=== PATIENT | female | born 1965 | race Caucasian/White ===

== ENCOUNTER → 2018-02-04 08:20 | Outpatient (CLI) | payer OTHER, SELFPAY ==
--- NOTE | 2018-02-04 08:30 | RAD_ITS ---
STUDY: X-RAY - ESOPHAGUS (BARIUM SWALLOW) WITH FLUOROSCOPY REASON FOR EXAM: Female, 52 years old. Dysphagia for solids. TECHNIQUE: 17 view(s) of the esophagus were obtained following swallowing of barium. FLUOROSCOPY TIME (if supplied): (0:29) minutes/seconds COMPARISON: None. FINDINGS: There is no demonstrated esophageal foreign body. There is no demonstrated stricture or mucosal abnormality. Mild degree of circumferential narrowing at the gastroesophageal junction. The patient ingested a 12 mm tablet barium without any difficulty. Normal visualized aortic arch and descending thoracic aorta. Normal visualized pulmonary parenchyma. Normal visualized osseous structures of the thorax. RAD/Esophagus Only IMPRESSION: Mild degree of circumferential narrowing at the gastroesophageal junction without trapping of the 12 mm tablet of barium. Endoscopy is recommended for further evaluation. Electronically Signed: Matt Garcia MD at 15:56 EDT Tel [phone], Service support ,
== END ==
PROVIDERS: Family Provider Family Medicine; PCP Family Medicine; Referring Provider Family Medicine; Visit Provider Family Medicine
DX: R13.10 Dysphagia, unspecified (principal)
CPT/HCPCS: 74220

== ENCOUNTER → 2018-03-28 16:15 | Outpatient (CLI) | payer OTHER, SELFPAY ==
--- NOTE | 2018-03-28 | EGD_PTH ---
PATIENT: STEPHEN ASIF LOC: [facility] U#:[id number] AGE/SX: 59/F ROOM: RE03/28/[address]: Dr. Gomez Gómez MD : 1965 BED: DIS: SPEC #: [id number] RECD: 03/28/18 16:19 STATUS: JAN TASHA #: [id number] PAOLA: 03/28/18 00:[address]: Gomez Gómez DEPT: SURGICAL PATHOLOGY RECD BY: Bennie Acharya ENTERED: 03/29/18 10:15 SP TYPE: EGD BIOPSY OT DR: Dr. Tanesha Larson MD [facility] Tissues: Esophageal mucous membrane Procedures: Surgery Specimen Level IV HEADER OPERATION: EGD with biopsy PRE-OP DIAGNOSIS: Dysphagia TISSUE SUBMITTED: Esophageal biopsies, rule out EE MICROSCOPIC DIAGNOSIS Esophageal biopsy: Fragments of squamous epithelium with mild congestion and minimal chronic inflammation. See comment. LA:xander 04/01/18 COMMENT Increased number of eosinophils, consistent with eosinophilic esophagitis are not seen. MICROSCOPIC DESCRIPTION Slides are reviewed. GROSS DESCRIPTION Received in fixative is one container labeled with the patient's name and designated esophageal biopsy. The specimen consists of multiple irregular fragments of light kulkarni soft tissue that in aggregate measure 1.5 x 0.5 x 0.1 cm. The specimen is totally submitted in one cassette. / SJ:rg 03/29/18 TC:3 CPT: 75702
--- OUTSIDE RECORDS SUMMARY | 2018-05-14 20:33 | XMS RPT_ITS ---
:1965 Author Organization [facility] Care Team Providers Name Role Phone Gomez Gómez Attending Unavailable Gomez Gómez Referring Unavailable Oscariff, Tanesha Primary Care Unavailable Jolliff, Tanesha Attending Unavailable Jolliff, Tanesha Referring Unavailable Jolliff, Tanesha Primary Care Unavailable PROBLEMS PROBLEMS No Problem Records FoundPROCEDURES PROCEDURES No Procedure Records FoundRESULTS RESULTS EGD ([facility] SITE) Observed: 03/28/2018 Status: F Source: [place] 12:00 AM [facility] REPOSITORY Patient: STEPHEN ASIF : 1965 (52/F) Acct Num: [id number] Phys: Gomez Gómez Unit Num: [id number] Loc: LABSPEC Specimen: [id number] Received: 03/28/181618 Spec Type: EGD BIOPSY TISSUES 1 TISSUES: Esophageal mucous membrane COMMENT Increased number of eosinophils, consistent with eosinophilic esophagitis are not seen. GROSS DESCRIPTION Received in fixative is one container labeled with the patient's name and designated esophageal biopsy. The specimen consists of multiple irregular fragments of light kulkarni soft tissue that in aggregate measure 1.5 x 0.5 x 0.1 cm. The specimen is totally submitted in one cassette. / LA:xander 03/29/18 TC:3 CPT: 58330 HEADER OPERATION: EGD with biopsy PRE-OP DIAGNOSIS: Dysphagia TISSUE SUBMITTED: Esophageal biopsies, rule out EE MICROSCOPIC DESCRIPTION Slides are reviewed. MICROSCOPIC DIAGNOSIS Esophageal biopsy: Fragments of squamous epithelium with mild congestion and minimal chronic inflammation. See comment. SJ:xander 04/01/18 Signed Wiley Vang 04/01/18 <signature on file> Performed By: #### PEGD #### [facility] [address] [place], [address] ESOPHAGUS ONLY Observed: 02/04/2018 Status: F Source: [place] 8:30 AM [facility] REPOSITORY [facility] Imaging Services [address] [place] [address] [place] [address] Esophagus Only MR#: [id number] Acct: [id number] Name: LAYASTEPHEN Amanuel Rep #: [id number] : 1965 F 52 From: Matt Garcia MD PCP: Tanesha Larson MD Status: REG CLI Study: Esophagus Only Date of Exam: 02/04/18 Exam# [id number] Ordering Dr: Tanesha Larson MD STUDY: X-RAY - ESOPHAGUS (BARIUM SWALLOW) WITH FLUOROSCOPY REASON FOR EXAM: Female, 52 years old. Dysphagia for solids. TECHNIQUE: 17 view(s) of the esophagus were obtained following swallowing of barium. FLUOROSCOPY TIME (if supplied): (0:29) minutes/seconds COMPARISON: None. FINDINGS: There is no demonstrated esophageal foreign body. There is no demonstrated stricture or mucosal abnormality. Mild degree of circumferential narrowing at the gastroesophageal junction. The patient ingested a 12 mm tablet barium without any difficulty. Normal visualized aortic arch and descending thoracic aorta. Normal visualized pulmonary parenchyma. Normal visualized osseous structures of the thorax. RAD/Esophagus Only IMPRESSION: Mild degree of circumferential narrowing at the gastroesophageal junction without trapping of the 12 mm tablet of barium. Endoscopy is recommended for further evaluation. Electronically Signed: Matt Garcia MD at 15:56 EDT Tel [phone], Service support , CC: Tanesha Larson MD Casino Worker: Signed ALLERGIES ALLERGIES No Allergies Records FoundENCOUNTERS ENCOUNTERS ADMIT/DISCHARGE ACCOUNT ADMITTING ENCOUNTER LOCATION SOURCE NUMBER CLASS 03/28/2018 [id number] Ambulatory [facility]iffany [place] 5 [facility] ing:LABSPEC Repository 02/04/2018 [id number] Ambulatory Tiffany [place] 4 [facility] ing:RAD Repository PAYERS PAYERS ENCOUNTER GUARANTOR PAYER SUBSCRIBER SOURCE 03/28/2018 STEPHANIE [id number] Primary STEPHEN A Tiffany [address] Insurance:MEDICAL JOHNSONDOB: [address] [id number] [address]Qmd: (330) Number: Repository [phone] () [id number] Date:[id number] [place] [id number]: 03/28/2018 Secondary NOT GIVENUNK Tiffany Insurance:SELF PAY [facility] Number: Effective Repository Date:2018-03-28 02/04/2018 [id number] Primary STEPHEN A [place] [address] Insurance:MEDICAL JOHNSONDOB: [place] [address]-01-24[facility] [address]Azi: (330) Number: Repository [phone] () [id number] Date:[id number] [address] [id number]: 02/04/2018 Secondary NOT GIVENUNK [place] Insurance:SELF PAY [facility] Number: Effective Repository Date:2018-01-25
== END ==
PROVIDERS: Family Provider Family Medicine; PCP Family Medicine; Referring Provider Internal Medicine Gastroenterology; Visit Provider Internal Medicine Gastroenterology
DX: R13.10 Dysphagia, unspecified (principal)
CPT/HCPCS: 88305

== ENCOUNTER → 2020-07-27 15:44 | Outpatient (CLI) | payer OTHER, SELFPAY ==
[2020-07-27 17:57] LABS: Absolute Lymphocyte Count 1.86 X10^3/uL (0.83-4.51); Absolute Neutrophil Count 3.8 X10^3/uL (2.0-7.7); Basophil# 0.04 X10^3/uL; Basophil% 0.6 % (0-1); Eosinophil# 0.17 X10^3/uL; Eosinophils% 2.7 % (0-5); Hematocrit 40.1 % (37-47); Hemoglobin 12.7 g/dL (12.0-15.0); Lymphocyte # 1.86 X10^3/ul (4.0); Lymphocyte % 29.6 % (19-41); Mean Corp Hgb Conc 31.7 g/dL (32-36); Mean Corpuscular Hgb 28.5 pg (27.0-32.0); Mean Corpuscular Volume 89.9 fL (81-99); Mean Platelet Vol. 9.7 fl (6.2-12.0); Monocyte# 0.42 X10^3/uL; Monocyte% 6.7 % (0-10); NRBC Flagged by Analyzer 0 % (0-5); Neutrophil # 3.77 X10^3/uL (2.7-7.7); Neutrophil % 60.1 % (47-70); Platelet Count 259 K/mm3 (150-450); RBC Distribution Width CV 12.5 % (11.6-14.6); RBC Distribution Width SD 40.6 fl (35.1-43.9); Red Blood Count 4.46 M/mm3 (4.2-5.4); White Blood Count 6.3 K/mm3 (4.4-11.0)
[2020-07-27 18:17] LABS: ALB/GLOB Ratio 1.3 RATIO (0.9-2.4); AST(SGOT) 35 U/L (15-37); Alanine Aminotransfer ALT/SGPT 52 U/L (13-56); Alkaline Phosphatase 95 U/L (45-117); Anion Gap 6 (5-15); BUN 11 mg/dL (7-18); BUN/Creat Ratio 12.7 RATIO (10-20); Calcium,Total 9.5 mg/dL (8.5-10.1); Chloride 104 mmol/L (98-107); Creatinine, Serum 0.86 mg/dL (0.55-1.02); EST Glomerular Filtration Rate 73 mL/min (>60); Est Glom Filt Rate - Afr Amer 88 mL/min (>60); Globulin 3.1 g/dL (2.2-4.2); Glucose 135 mg/dL (74-106); Potassium 3.9 mmol/L (3.5-5.1); Protein, Total 7.1 g/dL (6.4-8.2); Sodium Level 139 mmol/L (136-145); Thyroid Stim Hormone (TSH) 1.71 uIU/mL (0.358-3.74)
[2020-07-29 10:28] LABS: Cholesterol 212 mg/dL (200); High Density Lipoprotein 38 mg/dL; Triglycerides 227 mg/dL; Very Low Density Lipoprotein 45 mg/dL (5-40)
== END ==
PROVIDERS: PCP Family Medicine; Referring Provider Family Medicine; Visit Provider Family Medicine
DX: Z01.419 Encounter for gynecological examination (general) (routine) without abnormal findings (principal); F32.9 Major depressive disorder, single episode, unspecified
CPT/HCPCS: 36415; 80053; 80061; 82306; 84443; 85025

== ENCOUNTER → 2020-08-25 | Outpatient (CLI) | payer OTHER, SELFPAY ==
[2020-08-30 12:50] LABS: HPV Reflexed? NOT INDICATED
== END | disposition home or self-care (01) ==
PROVIDERS: PCP Family Medicine; Visit Provider Family Medicine
DX: Z01.419 Encounter for gynecological examination (general) (routine) without abnormal findings (principal)
CPT/HCPCS: 88175; G0145

== ENCOUNTER 2021-06-22 12:38 | Outpatient (CLI) | payer OTHER, SELFPAY ==
[2021-06-22 15:14] LABS: Absolute Lymphocyte Count 1.66 X10^3/uL (0.83-4.51); Absolute Neutrophil Count 3.3 X10^3/uL (2.0-7.7); Basophil# 0.05 X10^3/uL; Basophil% 0.9 % (0-1); Eosinophil# 0.16 X10^3/uL; Eosinophils% 2.9 % (0-5); Hematocrit 41.4 % (37-47); Hemoglobin 13.6 g/dL (12.0-15.0); Lymphocyte # 1.66 X10^3/ul (0.83-4.51); Lymphocyte % 29.9 % (19-41); Mean Corp Hgb Conc 32.9 g/dL (32-36); Mean Corpuscular Hgb 28.9 pg (27.0-32.0); Mean Corpuscular Volume 87.9 fL (81-99); Mean Platelet Vol. 9.3 fl (6.2-12.0); Monocyte# 0.33 X10^3/uL; Monocyte% 5.9 % (0-10); NRBC Flagged by Analyzer 0 % (0-5); Neutrophil # 3.33 X10^3/uL (2.7-7.7); Neutrophil % 59.9 % (47-70); Platelet Count 239 K/mm3 (150-450); RBC Distribution Width CV 12.6 % (11.6-14.6); Red Blood Count 4.71 M/mm3 (4.2-5.4); White Blood Count 5.6 K/mm3 (4.4-11.0)
[2021-06-22 15:36] LABS: ALB/GLOB Ratio 1.2 RATIO (0.9-2.4); AST(SGOT) 27 U/L (15-37); Alanine Aminotransfer ALT/SGPT 42 U/L (13-56); Albumin, Serum 3.8 g/dL (3.2-5.0); Alkaline Phosphatase 90 U/L (45-117); Anion Gap 5 (5-15); BUN 11 mg/dL (7-18); BUN/Creat Ratio 11.2 RATIO (10-20); Calcium,Total 9.2 mg/dL (8.5-10.1); Chloride 102 mmol/L (98-107); Creatinine, Serum 0.98 mg/dL (0.55-1.02); EST Glomerular Filtration Rate 62 mL/min (>60); Est Glom Filt Rate - Afr Amer 75 mL/min (>60); Globulin 3.3 g/dL (2.2-4.2); Glucose 177 mg/dL (74-106); Potassium 3.9 mmol/L (3.5-5.1); Protein, Total 7.1 g/dL (6.4-8.2); Sodium Level 138 mmol/L (136-145); Thyroid Stim Hormone (TSH) 1.42 uIU/mL (0.358-3.74)
== END 2021-06-22 23:59 | disposition home or self-care (01) ==
LOC: MTLAB 12:40
PROVIDERS: PCP Family Medicine; Referring Provider Family Medicine; Visit Provider Family Medicine
DX: R00.2 Palpitations (principal)
CPT/HCPCS: 36415; 80053; 84443; 85025

== ENCOUNTER → 2022-01-31 | Outpatient (CLI) | payer OTHER, SELFPAY ==
[2022-01-31 17:48] LABS: Absolute Neutrophil Count 3.8 X10^3/uL (2.0-7.7); Basophil# 0.05 X10^3/uL; Basophil% 0.8 % (0-1); Eosinophil# 0.24 X10^3/uL; Eosinophils% 3.6 % (0-5); Hematocrit 37.1 % (37-47); Hemoglobin 12.3 g/dL (12.0-15.0); Lymphocyte % 30.4 % (19-41); Mean Corp Hgb Conc 33.2 g/dL (32-36); Mean Corpuscular Hgb 29.4 pg (27.0-32.0); Mean Corpuscular Volume 88.5 fL (81-99); Mean Platelet Vol. 9.2 fl (6.2-12.0); Monocyte# 0.42 X10^3/uL; Monocyte% 6.4 % (0-10); NRBC Flagged by Analyzer 0 % (0-5); Neutrophil # 3.84 X10^3/uL (2.7-7.7); Neutrophil % 58.3 % (47-70); Platelet Count 251 K/mm3 (150-450); RBC Distribution Width CV 12.4 % (11.6-14.6); RBC Distribution Width SD 39.8 fl (35.1-43.9); Red Blood Count 4.19 M/mm3 (4.2-5.4); White Blood Count 6.6 K/mm3 (4.4-11.0)
[2022-01-31 18:23] LABS: ALB/GLOB Ratio 1.3 RATIO (0.9-2.4); AST(SGOT) 20 U/L (15-37); Alanine Aminotransfer ALT/SGPT 33 U/L (13-56); Albumin, Serum 3.8 g/dL (3.2-5.0); Alkaline Phosphatase 87 U/L (45-117); Anion Gap 6 (5-15); BUN 15 mg/dL (7-18); BUN/Creat Ratio 15.3 RATIO (10-20); Calcium,Total 9.7 mg/dL (8.5-10.1); Chloride 104 mmol/L (98-107); Creatinine, Serum 0.98 mg/dL (0.55-1.02); EST Glomerular Filtration Rate 62 mL/min (>60); Est Glom Filt Rate - Afr Amer 75 mL/min (>60); Glucose 135 mg/dL (74-106); Potassium 3.8 mmol/L (3.5-5.1); Protein, Total 6.8 g/dL (6.4-8.2); Sodium Level 138 mmol/L (136-145)
== END | disposition home or self-care (01) ==
LOC: MFPLAB 16:10
PROVIDERS: Family Medicine; PCP Family Medicine; Referring Provider Family Medicine; Visit Provider Family Medicine
DX: R10.9 Unspecified abdominal pain (principal); N39.0 Urinary tract infection, site not specified
CPT/HCPCS: 36415; 80053; 85025; 87086; 87088

== ENCOUNTER → 2022-08-23 | Outpatient (CLI) | payer OTHER, SELFPAY ==
--- NOTE | 2022-08-23 15:47 | CT_ITS ---
EXAM: CT ABDOMEN AND PELVIS WITH INTRAVENOUS CONTRAST CLINICAL INDICATION: Severe abd. pain post appendectomy STAT please TECHNIQUE: Helically acquired images were obtained of the abdomen and pelvis with intravenous contrast. This CT exam was performed using one or more of the following dose reduction techniques: automated exposure control, adjustment of the mA and/or kV according to patient size, and/or use of iterative reconstruction technique. CONTRAST: Oral and amp;amp; IV Gastrografin and amp;amp; 100mL Isovue-300 RADIATION DOSE: CTDIvol = 17.06 mGy, DLP = 1260.58 mGy-cm COMPARISON: 09/04/2012 FINDINGS: LOWER THORAX: Unremarkable. Lung bases are clear. No cardiomegaly. No significant pericardial effusion. ABDOMEN: LIVER: Fatty infiltration of the liver with no focal mass. GALLBLADDER AND BILE DUCTS: Unremarkable. No calcified gallstones. No gallbladder distention or wall edema. No intra- or extrahepatic biliary ductal dilation. PANCREAS: Unremarkable. No focal cystic or solid mass. SPLEEN: Unremarkable. Normal size without focal cystic or solid mass. ADRENALS: Unremarkable. No nodules. KIDNEYS AND URETERS: Unremarkable. Normal renal size and position. No hydronephrosis. STOMACH AND BOWEL: Unremarkable. No stomach or bowel distention. No focal inflammatory change. No extravasation of contrast from the GI tract to suggest leak. PELVIS: APPENDIX: No evidence of acute appendicitis. BLADDER: Unremarkable. REPRODUCTIVE: Unremarkable as visualized. No mass. ABDOMEN and PELVIS: INTRAPERITONEAL SPACE: No evidence for abdominal pelvic abscess. No intra-abdominal abscess. No evidence of inflammatory process in the right lower quadrant. No ascites or other fluid collection. No free air. BONES/JOINTS: Unremarkable. No suspicious lytic or blastic abnormality. SOFT TISSUES: Induration of the anterior abdominal wall especially the umbilicus seen consistent with the history of recent surgery. No discrete abdominal or pelvic wall hernia. No abscess of the abdominal wall. VASCULATURE: Unremarkable. Abdominal aorta is non-dilated. LYMPH NODES: Unremarkable. No enlarged lymph nodes. CT/Abdomen/Pelvis WITH Contrast IMPRESSION: 1. No definite acute or significant abnormality seen. 2. Postsurgical changes around the umbilicus without abscess. 3. No free fluid or intra-abdominal abscess. Electronically Signed: Fito Marc MD at 18:59 EDT ,
== END | disposition home or self-care (01) ==
PROVIDERS: PCP Family Medicine; Referring Provider Family Medicine; Visit Provider Family Medicine
DX: R10.84 Generalized abdominal pain (principal)
CPT/HCPCS: 74177; Q9967

== ENCOUNTER → 2023-01-24 | Outpatient (CLI) | payer OTHER, SELFPAY ==
[2023-01-24 17:57] LABS: Hematocrit 39.4 % (37-47); Hemoglobin 12.8 g/dL (12.0-15.0); Mean Corp Hgb Conc 32.5 g/dL (32-36); Mean Corpuscular Hgb 28.9 pg (27.0-32.0); Mean Corpuscular Volume 88.9 fL (81-99); Mean Platelet Vol. 9.4 fl (6.2-12.0); Platelet Count 265 K/mm3 (150-450); RBC Distribution Width CV 12.2 % (11.6-14.6); RBC Distribution Width SD 39.6 fl (35.1-43.9); Red Blood Count 4.43 M/mm3 (4.2-5.4); White Blood Count 6.2 K/mm3 (4.4-11.0)
[2023-01-24 18:17] LABS: Hemoglobin A1c 6.9 % (3.8-5.6)
[2023-01-24 18:41] LABS: Anion Gap 4 (5-15); BUN 13 mg/dL (7-18); BUN/Creat Ratio 14.2 RATIO (10-20); Calcium,Total 9.2 mg/dL (8.5-10.1); Chloride 104 mmol/L (98-107); Cholesterol 199 mg/dL (200); Creatinine, Serum 0.92 mg/dL (0.55-1.02); EST Glomerular Filtration Rate 67 mL/min (>60); Est Glom Filt Rate - Afr Amer 81 mL/min (>60); Glucose 128 mg/dL (74-106); High Density Lipoprotein 47 mg/dL; Potassium 3.7 mmol/L (3.5-5.1); Sodium Level 138 mmol/L (136-145); T4 Free Direct 1.06 ng/dL (0.76-1.46); Thyroid Stim Hormone (TSH) 2.07 uIU/mL (0.358-3.74); Triglycerides 114 mg/dL; Very Low Density Lipoprotein 23 mg/dL (5-40)
== END | disposition home or self-care (01) ==
LOC: MFPLAB 16:43
PROVIDERS: PCP Family Medicine; Visit Provider Nurse Practitioner Family
DX: Z13.1 Encounter for screening for diabetes mellitus (principal); R53.83 Other fatigue
CPT/HCPCS: 36415; 80048; 80061; 83036; 84439; 84443; 85027